=== PATIENT | female | born 1975 | race Caucasian/White ===

== ENCOUNTER 2019-05-24 12:55 | Emergency (ER) | payer BC ==
--- NOTE | 2019-05-24 14:34 | ED Physician Documentation ---
PD HPI ABD PAIN - Stated complaint Stated Complaint: /BLEEDING/10 WKS - Chief complaint Chief Complaint: Abd Pain - History obtained from History obtained from: Patient - History of Present Illness Timing - onset: Other (43-year-old G2, P1 at 10 weeks gestation started having cramping and spotting 2 days ago. She was seen at [facility] and diagnosed with a blighted ovum. Today bleeding is much heavier. She is going through 2 pads an hour.) Review of Systems Ten Systems: 10 systems reviewed and negative Constitutional: denies: Fever, Chills GI: denies: Abdominal Pain, Nausea, Vomiting, Diarrhea : reports: Reviewed and negative PD PAST MEDICAL HISTORY - Past Medical History Past Medical History: No - Allergies Allergies/Adverse Reactions: Allergies Allergy/AdvReac Type Severity Reaction Status Date / Time shrimp Allergy Anaphylaxis Verified 05/24/19 13:01 - Living Situation Living Situation: reports: With spouse/s.o. 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 She was very tender on pelvic examination I was unable to complete, I was only able to see part of the cervix which looked very swollen, I was not able to see the os.) - Extremities Extremities: No edema, No calf tenderness / cord - Neuro Neuro: Alert and oriented X 3, Normal speech - Psych Psych: Normal mood, Normal affect Results - Vitals Vitals: Vital Signs - 24 hr 05/24/19 05/24/19 05/24/19 13:01 16:30 16:40 Temperature 36.5 C Heart Rate 78 63 71 Respiratory 14 21 17 Rate Blood Pressure 126/81 H 117/74 119/76 O2 Saturation 100 98 100 Oxygen O2 Source Room air - Labs Labs: Laboratory Tests 05/24/19 05/24/19 05/24/19 14:25 14:25 14:25 WBC 11.3 H RBC 4.06 L Hgb 13.5 Hct 38.9 MCV 95.8 MCH 33.3 H MCHC 34.7 RDW 11.4 L Plt Count 343 MPV 9.7 Neut # (Auto) 8.6 H Lymph # (Auto) 1.9 [place] # (Auto) 0.6 Eos # (Auto) 0.1 Baso # (Auto) 0.0 Absolute Nucleated RBC 0.00 Nucleated RBC % 0.0 Sodium 132 L Potassium 3.3 L Chloride 97 L Carbon Dioxide 24 Anion Gap 11.0 BUN 12 Creatinine 0.6 Estimated GFR (MDRD) 110 Glucose 106 H Calcium 9.4 Total Bilirubin 0.3 AST 22 ALT 17 Alkaline Phosphatase 52 Total Protein 8.1 Albumin 4.4 Globulin 3.7 Albumin/Globulin Ratio 1.2 Lipase 27 HCG, Quant Urine Color Urine Clarity Urine pH Ur Specific [place] Urine Protein Urine Glucose (UA) Urine Ketones Urine Occult Blood Urine Nitrite Urine Bilirubin Urine Urobilinogen Ur Leukocyte Esterase Urine RBC Urine WBC Ur Squamous Epith Cells Urine Bacteria Ur Microscopic Review Urine Culture Comments Blood Type A NEGATIVE Antibody Screen POSITIVE 05/24/19 05/24/19 14:25 14:44 WBC RBC Hgb Hct MCV MCH MCHC RDW Plt Count MPV Neut # (Auto) Lymph # (Auto) [place] # (Auto) Eos # (Auto) Baso # (Auto) Absolute Nucleated RBC Nucleated RBC % Sodium Potassium Chloride Carbon Dioxide Anion Gap BUN Creatinine Estimated GFR (MDRD) Glucose Calcium Total Bilirubin AST ALT Alkaline Phosphatase Total Protein Albumin Globulin Albumin/Globulin Ratio Lipase HCG, Quant 25379.00 Urine Color LT RED Urine Clarity CLOUDY Urine pH 6.5 Ur Specific [place] <=1.005 Urine Protein 30 H Urine Glucose (UA) NEGATIVE Urine Ketones NEGATIVE Urine Occult Blood LARGE H Urine Nitrite NEGATIVE Urine Bilirubin NEGATIVE Urine Urobilinogen 0.2 (NORMAL) Ur Leukocyte Esterase TRACE H Urine RBC TNTC H Urine WBC 4-5 Ur Squamous Epith Cells NONE SEEN Urine Bacteria None Seen Ur Microscopic Review INDICATED Urine Culture Comments INDICATED Blood Type Antibody Screen PD MEDICAL DECISION MAKING - ED course ED course: 43-year-old G2, P1 presents with known blighted ovum and now heavier bleeding. I was unable to complete a pelvic examination due to severe tenderness. Spoke with the on-call welfare interviewer, Dr. Burris and discussed the findings. He recommended a repeat ultrasound and if the findings of blighted ovum were confirmed agreed with Cytotec administration. Records received from [facility] and ultrasound report confirmed a blighted ovum of 5 weeks size. She agreed to Cytotec and the dose was confirmed with OB. Departure - Departure Disposition: 01 Home, Self Care Clinical Impression: Blighted ovum Condition: Good Record reviewed to determine appropriate education?: Yes Instructions: ED Miscarriage Inevitable Comments: Call your doctor to arrange a follow-up appointment, make the next available appointment. In the interim, return anytime if worse or if new symptoms develop.
[2019-05-24 14:42] LABS: BASOPHILS % (AUTO) 0.3 %; EOSINOPHILS # (AUTO) 0.1 10^3/uL (0.0-0.7); EOSINOPHILS % (AUTO) 0.9 %; HGB - HEMOGLOBIN 13.5 g/dL (12.0-16.0); LYMPHOCYTES # (AUTO) 1.9 10^3/uL (1.5-3.5); LYMPHOCYTES % (AUTO) 17.1 %; MEAN CORPUSCULAR HEMOGLOBIN 33.3 pg (27.0-31.0); MEAN CORPUSCULAR HGB CONC 34.7 g/dL (32.0-36.0); MEAN CORPUSCULAR VOLUME 95.8 fL (81.0-99.0); MEAN PLATELET VOLUME 9.7 fL (7.9-10.8); MONOCYTES # (AUTO) 0.6 10^3/uL (0.0-1.0); MONOCYTES % (AUTO) 5.1 %; NEUTROPHILS # (AUTO) 8.6 10^3/uL (1.5-6.6); NEUTROPHILS % (AUTO) 76.2 %; PLT - PLATELET COUNT 343 10^3/uL (130-450); RED BLOOD COUNT 4.06 10^6/uL (4.20-5.40); RED CELL DISTRIBUTION WIDTH 11.4 % (12.0-15.0); WHITE BLOOD COUNT 11.3 x10^3/uL (4.8-10.8)
[2019-05-24 14:56] LABS: ALBUMIN 4.4 g/dL (3.2-5.5); ALBUMIN/GLOBULIN RATIO 1.2 (1.0-2.2); BILIRUBIN,TOTAL 0.3 mg/dL (0.2-1.0); CALCIUM 9.4 mg/dL (8.5-10.3); CREATININE 0.6 mg/dL (0.4-1.0); TOTAL PROTEIN 8.1 g/dL (6.7-8.2)
[2019-05-24 15:10] LABS: BILIRUBIN,URINE NEGATIVE (NEGATIVE); GLUCOSE, URINE (UA) NEGATIVE (NEGATIVE); KETONES,URINE (UA) NEGATIVE (NEGATIVE); LEUKOCYTE ESTERASE, URINE TRACE (NEGATIVE); NITRITE,URINE NEGATIVE (NEGATIVE); OCCULT BLOOD,URINE LARGE (NEGATIVE); PH,URINE 6.5 PH (5.0-7.5); PROTEIN,URINE 30 mg/dL (NEGATIVE); UROBILINOGEN,URINE 0.2 (NORMAL) E.U./dL (NORMAL)
[2019-05-24 15:19] LABS: CLARITY,URINE CLOUDY (CLEAR)
[2019-05-24 15:38] LABS: RBC,URINE TNTC /HPF (0-5)
[2019-05-24 15:39] LABS: BACTERIA,URINE None Seen /HPF (None Seen); SQUAMOUS EPITHELIAL CELL,UR NONE SEEN (<= Few)
[2019-05-24] MEDS ORDERED: HYDROcod/ACET 5/325 Prepack 4 PO STA (17:16)
[2019-05-24] MEDS ORDERED: miSOPROStol 100 MCG TABLET VG STA (17:16)
[2019-05-24 17:39] VITALS: BP 117/63
== END 2019-05-24 17:37 | disposition home or self-care (01) ==
LOC: EEVIPCON 12:55 → ED 12:55
DX: O02.0 Blighted ovum and nonhydatidiform mole (principal)
CPT/HCPCS: 36415; 80053; 81001; 83690; 84702; 85025; 86850; 86870; 86900; 86901; 87086; 99283; 99284; A9270; 81003